=== PATIENT | female | born 1960 | race American Indian/Alaskan Native ===

== ENCOUNTER 2016-09-28 15:12 | Outpatient (CLI) | payer BC ==
--- NOTE | 2016-09-28 16:53 | Cat Scan Report ---
CT of the abdomen and pelvis without contrast. History: Hematuria. Findings: The liver, spleen, and pancreas appear normal. There is mild right perinephric stranding. There is no hydronephrosis, renal mass, or intrarenal stone. No ureteral stones are seen. Several phleboliths are seen in the pelvis. There are no pelvic masses. Impression: Right perinephric stranding without evidence of obstruction. This is most likely due to an inflammatory process.
== END 2016-09-28 15:13 | disposition home or self-care (01) ==
LOC: CT 15:12
PROVIDERS: ATTEND Urology
DX: R31.9 Hematuria, unspecified (principal); I87.8 Other specified disorders of veins
CPT/HCPCS: 74176